=== PATIENT | male | born 2000 | race Caucasian/White ===

== ENCOUNTER 2021-06-25 21:10 | Inpatient (IN) | payer BC ==
[~2021-06-25] VITALS: Ht 172.7 cm; Wt 61.2 kg
[2021-06-25] MEDS ORDERED: APRISO0.375 GM PO (21:24)
[2021-06-25] MEDS ORDERED: ESCITALOPRA5 MG/5 ML PO (21:25)
[2021-06-27] MEDS ORDERED: ZOFRAN8 MG PO (10:24)
[2021-06-27] MEDS ORDERED: PERCOCET 5-3251 EACH PO (10:24)
== END 2021-06-27 11:51 | disposition home or self-care (01) | DRG 343 ==
LOC: ER 21:10 → EMR PED 21:14 → OB/GYN 06-26 03:58 → EMR PED 06-26 03:58 → OB/GYN 06-26 04:19 → SEC-K 06-26 04:19 → OB/GYN 06-26 04:20 → SEC-K 06-26 04:20 → SURG 06-26 12:02
PROVIDERS: ADMIT Surgery; ATTEND Surgery
PROC: BW21YZZ Computerized Tomography (CT Scan) of Abdomen and Pelvis using Other Contrast (ICD-10-PCS; 2021-06-26)
PROC: 0DTJ4ZZ Resection of Appendix, Percutaneous Endoscopic Approach (ICD-10-PCS; principal; 2021-06-26 07:00)
DX: K35.890 Other acute appendicitis without perforation or gangrene (principal); R10.9 Unspecified abdominal pain; Z20.822 Contact with and (suspected) exposure to COVID-19